=== PATIENT | female | born 1990 | race American Indian/Alaskan Native ===

== ENCOUNTER 2022-03-01 18:38 | Outpatient (CLI) | payer OTHER ==
[2022-03-01 19:13] VITALS: BP 105/50
[2022-03-01] MEDS ORDERED: LACTATED RINGERS 1,000 ML IV ONE (20:07)
[2022-03-01 21:10] LABS: Mean Corpuscular HGB Conc 31 % (30-34); Platelet Count 390 K/mm3 (140-440); Red Blood Count 2.63 M/mm3 (3.65-5.03); Red Cell Distribution Width 19.8 % (13.2-15.2)
--- NOTE | 2022-03-01 21:14 | Ultrasound Report ---
ULTRASOUND OBSTETRIC ULTRASOUND BIOPHYSICAL PROFILE INDICATION: Decreased movements, lower abdominal pain, right facial numbness. Covid positive. Clinical Gestational Age (GA): 29.4 weeks TECHNIQUE: Transabdominal and Transvaginal. COMPARISON: None available. FINDINGS: There is a single intrauterine . Biparietal Diameter = 7.37 cm = 29 weeks, 4 day(s). Head Circumference = 27.18 cm = 29 weeks, 5 day(s). Abdominal Circumference = 24.63 cm = 28 weeks, 6 day(s). Femur Length = 5.03 cm = 27 weeks, 0 day(s). Average Ultrasound Age (AUA) = 28 weeks, 6 day(s). Heart Rate: 165 beats per minute. Estimated Weight in grams (if calculated): 1218 Estimated Weight Growth Percentile (if calculated): 8 Position: cephalic. Cervix: closed. Length in cm (if measured): 3.5 Placenta: posterior and free of the os. Amniotic Fluid Volume: normal Amniotic Fluid Index (GROVER) in cm (if calculated): 1220. Maternal Adnexa: No significant abnormality. BREATHING MOVEMENT = 2 GROSS BODY MOVEMENT = 2 TONE = 2 QUALITATIVE AMNIOTIC FLUID VOLUME = 2 TOTAL BIOPHYSICAL SCORE = 8/8 IMPRESSION: 1. Single, living intrauterine with estimated sonographic age of 28 weeks, 6 day(s). 2. Biophysical profile 04/16. 3. No significant sonographic abnormality. Signer Name: Bradley Hoang MD Signed: 03/01/2022 9:10 PM Workstation Name: [id number]
[2022-03-01 21:21] LABS: Mean Corpuscular Volume 62 fl (79-97)
[2022-03-01 21:43] LABS: Hematocrit 16.2 % (30.3-42.9)
[2022-03-01] MEDS ORDERED: ACETAMINOPHEN 500 MG TAB PO ONE (22:42)
== END 2022-03-01 23:03 | disposition home or self-care (01) ==
LOC: TRG 18:38 → APU 18:39 → TRG 23:03
PROVIDERS: ATTEND Obstetrics & Gynecology
DX: O36.8130 Decreased fetal movements, third trimester, not applicable or unspecified (principal); O46.93 Antepartum hemorrhage, unspecified, third trimester; Z3A.29 29 weeks gestation of pregnancy
CPT/HCPCS: 36415; 76816; 76817; 76819; 85027